=== PATIENT | female | born 1960 | race Caucasian/White ===

== ENCOUNTER 2021-05-10 00:34 | Observation (INO) | payer OTHER ==
[~2021-05-10] VITALS: Ht 154.9 cm; Wt 48.5 kg
[~2021-05-10 00:34] MED LIST: CIPRO500 MG PO; HYDROXYZINE HCL25 M2 PO; METOPROLOL SUCC25 M1 PO; PREDNISONE 20 M20 M1 PO; ULTRAM 50MG TAB50 MG PO; VALIUM5 MG PO
[2021-05-10 00:37] VITALS: BP 125/69
[2021-05-10 01:15] LABS: ABSOLUTE BASOPHILS 0.1 thou/uL (0.0-0.2); ABSOLUTE EOSINOPHILS 0.1 thou/uL (0.0-0.7); ABSOLUTE LYMPHOCYTES 1.6 thou/uL (0.8-5.3); ABSOLUTE MONOCYTES 0.4 thou/uL (0.0-1.2); ABSOLUTE NEUTROPHILS 5.3 thou/uL (1.6-8.1); BASOPHILS 0.7 %; EOSINOPHILS 1.1 %; HEMATOCRIT 39.8 % (37.0-47.0); HEMOGLOBIN 13.7 gm/dL (12.0-15.0); LYMPHOCYTES 21.3 %; MCH 29.8 pg (26.0-34.0); MCHC 34.5 g/dL (28.0-37.0); MCV 86.3 fL (80.0-100.0); MONOCYTES 4.9 %; MPV 7.4 fl. (7.2-11.1); NUCLEATED RBCS 0 /100WBC; PLATELET COUNT* 212 thou/uL (150-400); RBC 4.61 mil/uL (4.20-5.00); RDW-CV 14.5 % (10.5-14.5); WBC 7.3 thou/uL (4.0-11.0)
[2021-05-10 01:24] LABS: CALCIUM 8.5 mg/dL (8.5-10.1); CREATININE 0.8 mg/dL (0.6-1.3); POTASSIUM 3.5 mmol/L (3.5-5.1)
[2021-05-10 01:34] LABS: ALBUMIN 3.9 g/dL (3.4-5.0); MAGNESIUM 1.9 mg/dL (1.8-2.4); TOTAL BILIRUBIN 1.9 mg/dL (<0.1-1.0); TOTAL PROTEIN 6.6 g/dL (6.4-8.2)
[2021-05-10 02:27] LABS: URINE BILIRUBIN NEGATIVE (Negative); URINE BLOOD 1+ (Negative); URINE COLOR YELLOW; URINE GLUCOSE-RANDOM NEGATIVE (Negative); URINE KETONES NEGATIVE (Negative); URINE LEUKOCYTES-REFLEX TRACE (Negative); URINE PROTEIN NEGATIVE (Negative); URINE SPECIFIC GRAVITY >= 1.030 (1.005-1.030); URINE UROBILINOGEN 0.2 E.U./dl (0.2-1.0)
[2021-05-10 02:30] LABS: URINE CLARITY SL CLOUDY; URINE NITRITE-REFLEX POSITIVE (Negative)
[2021-05-10 02:36] LABS: AMP/METHAMP Negative (Negative); BARBITURATES Negative (Negative); BENZODIAZEPINES POSITIVE (Negative); COCAINE Negative (Negative); METHADONE Negative (Negative); OPIATES POSITIVE (Negative); PCP Negative (Negative); THC POSITIVE (Negative)
[2021-05-10 02:55] LABS: SQUAMOUS 0-3 Few /LPF (0-3); WBC CLUMPS Few (None Seen)
[2021-05-10 02:56] LABS: BACTERIA-REFLEX >30 Many /HPF (None Seen); CASTS None Seen /LPF (None Seen); CRYSTALS None Seen /LPF (None Seen); MUCUS 4-6 Moderate strn/LPF (None Seen)
[2021-05-10 06:19] VITALS: BP 157/69
[2021-05-10 09:45] VITALS: BP 125/65
[2021-05-10 14:15] VITALS: BP 95/54
[2021-05-10 17:45] VITALS: BP 111/60
[2021-05-10 21:30] VITALS: BP 114/54
[2021-05-11] VITALS (7 sets, daily range): BP systolic 110–140; BP diastolic 54–78
[2021-05-11 02:37] LABS: HEMATOCRIT 40.5 % (37.0-47.0); HEMOGLOBIN 13.9 gm/dL (12.0-15.0); MCH 29.8 pg (26.0-34.0); MCHC 34.3 g/dL (28.0-37.0); MCV 86.6 fL (80.0-100.0); MPV 7.6 fl. (7.2-11.1); RBC 4.68 mil/uL (4.20-5.00); RDW-CV 14.8 % (10.5-14.5); WBC 8.5 thou/uL (4.0-11.0)
[2021-05-11 02:47] LABS: ALBUMIN 3.6 g/dL (3.4-5.0); BUN 16 mg/dL (7-18); SGPT 22 U/L (30-65); TROPONIN-I LEVEL <0.06 ng/mL (<0.06); VLDL 11 mg/dL (<40)
[2021-05-11 02:51] LABS: ALKALINE PHOSPHATASE 61 U/L (46-116); ANION GAP 7 mmol/L (7-16); CALCIUM 8.3 mg/dL (8.5-10.1); CHLORIDE 107 mmol/L (98-107); CHOLESTEROL 171 mg/dL (<200); CO2 28 mmol/L (21-32); CREATININE 0.9 mg/dL (0.6-1.3); GLUCOSE 104 mg/dL (70-99); HDL CHOLESTEROL 75 mg/dL (>40); LDL CHOLESTEROL 85 mg/dL (<100); SGOT 12 U/L (15-37); SODIUM 142 mmol/L (136-145); TC:HDL 2.3 Ratio (Not establshd); TOTAL BILIRUBIN 3.7 mg/dL (<0.1-1.0); TOTAL PROTEIN 6.1 g/dL (6.4-8.2); TRIGLYCERIDE 57 mg/dL (<150)
[2021-05-11 03:08] LABS: SERUM ASSESSMENT CLEAR
[2021-05-11 05:06] LABS: GLYCOHEMOGLOBIN (HGB A1C) 5.5 % (4.8-5.6)
[2021-05-11] MEDS ORDERED: IBUPROFEN 600600 M1 PO (07:38)
[2021-05-11] MEDS ORDERED: LEVOFLOXACIN500 MG PO (07:38)
--- NOTE | 2021-05-11 09:59 | NUR ---
Admission Assessment Admitted from Home Drove self to Hospital Mental Status upon admission Alert & Oriented x Living Arrangements: House Lives with: spouse Clive Support system: Name Phone number Kevin Razo [phone] [facility] Can patient return to prior living arrangements? Yes Activities of daily living: Independent Assistive device: Not using any but does have shower chair and walker if needed Prior resource use: None
--- NOTE | 2021-05-11 13:04 | 2DMMODE ---
[place] [address] 2 D/M-MODE ECHOCARDIOGRAM Name: SANDRA TERRELL Lon Room: [address] Margo#: [id number] Admission: 05/10/21 Attend Phys: Alicia Yusuf Discharge: Date of : 60 Date of Service: 05/11/21 1304 Report #: [id number] THIS REPORT FOR: cc: Lc Posadas Bradley L. DO Holkins, John M. MD [facility] ~ APPROVED REPORT Study performed: 05/11/2021 11:34:08 EXAM: Comprehensive 2D, Doppler, and color-flow Echocardiogram Patient Location: In-Patient Status: routine BSA: 1.45 HR: 66 bpm BP: 110/62 mmHg Rhythm: NSR Other Information Study Quality: Good Indications Chest Pain 2D Dimensions IVSd: 7.93 (7-11mm) LVOT Diam: 18.15 (18-24mm) LVDd: 41.44 mm PWd: 8.36 (7-11mm) Ascending Ao: 31.41 (22-36mm) LVDs: 24.34 (25-40mm) Aortic Root: 29.61 mm Volumes Left Atrial Volume (Systole) LA ESV Index: 22.50 mL/m2 Aortic Valve AoV Peak Patrick.: 1.14 m/s AO Peak Gr.: 5.22 mmHg LVOT Max P.41 mmHg AO Mean Gr.: 2.91 mmHg LVOT Mean P.59 mmHg LVOT Max V: 0.92 m/s AO V2 VTI: 27.04 cm LVOT Mean V: 0.57 m/s MK (VTI): 1.96 cm2 LVOT V1 VTI: 20.50 [place] [address] 2 D/M-MODE ECHOCARDIOGRAM Name: SANDRA TERRELL Room: [address] MNichelleRNichelle#: [id number] Admission: 05/10/21 Attend Phys: Alicia Yusuf Discharge: Date of : 60 Date of Service: 05/11/21 1304 Report #: [id number] Mitral Valve E/A Ratio: 1.12 MV Decel. Time: 200.98 ms MV E Max Patrick.: 0.84 m/s MV PHT: 58.28 ms MVA (PHT): 3.77 cm2 TDI E/Lateral E': 6.00 E/Medial E': 6.46 Medial E' Patrick.: 0.13 m/s Lateral E' Patrick.: 0.14 m/s Pulmonary Valve PV Peak Patrick.: 0.84 m/s PV Peak Gr.: 2.82 mmHg Tricuspid Valve RAP Estimate: 5.00 mmHg TR Peak Gr.: 17.07 mmHg RVSP: 22.00 mmHg PA Pressure: 22.00 mmHg Left Ventricle The left ventricle is normal size. There is normal LV segmental wall motion. There is normal left ventricular wall thickness. Left ventricular systolic function is normal. The left ventricular ejection fraction is within the normal range. LVEF is 60%. The left ventricular diastolic function is normal. Right Ventricle The right ventricle is normal size. The right ventricular systolic function is normal. Atria The left atrium size is normal. The right atrium size is normal. Aortic Valve The aortic valve is normal in structure. No aortic regurgitation is present. There is no aortic valvular stenosis. Mitral Valve The mitral valve is normal in structure. Trace mitral regurgitation. No evidence of mitral valve stenosis. Tricuspid Valve The tricuspid valve is normal in structure. Trace tricuspid regurgitation. [place] [address] 2 D/M-MODE ECHOCARDIOGRAM Name: SANDRA TERRELL [address]#: [id number] Admission: 05/10/21 Attend Phys: Alicia Yusuf Discharge: Date of : 60 Date of Service: 05/11/21 1304 Report #: [id number] Pulmonic Valve The pulmonary valve is normal in structure. There is no pulmonic valvular regurgitation. Great Vessels The aortic root is normal in size. IVC is normal in size and collapses >50% with inspiration. Pericardium There is no pericardial effusion. <Conclusion> The left ventricle is normal size. There is normal left ventricular wall thickness. Left ventricular systolic function is normal. The left ventricular ejection fraction is within the normal range. LVEF is 60%. The left ventricular diastolic function is normal. The right ventricle is normal size. The left atrium size is normal. The aortic valve is normal in structure. The mitral valve is normal in structure. Trace mitral regurgitation. The tricuspid valve is normal in structure. IVC is normal in size and collapses >50% with inspiration. There is no pericardial effusion. There is normal LV segmental wall motion. <ELECTRONICALLY SIGNED> By: Connor Waterman MD, FACC 05/11/21 1304 1304 1304 Connor Waterman MD, FACC /INF
--- NOTE | 2021-05-11 14:02 | EKG ---
[place] [address] ELECTROCARDIOGRAM REPORT Name: SANDRA TERRELL Room: [address] M.R.#: [id number] Admission: 05/10/21 Attend Phys: Alicia Yusuf Discharge: Date of : 60 Date of Service: 05/10/21 0259 Report #: [id number] THIS REPORT FOR: //name// [facility] ED Test Date: 2021-05-10 Test Time: 02:59:31 Pat Name: SANDRA TERRELL Department: Room: [facility] Gender: F Processor Helper: DANIA : 1960 Requested By: Lucy Zayas Order Number: [id number] MD: Connor Waterman Measurements Intervals [place] Rate: 55 P: 57 MN: 172 QRS: 29 QRSD: 94 T: 30 QT: 431 QTc: 413 Interpretive Statements Sinus rhythm Compared to ECG 05/10/2021 00:40:43 No significant changes Electronically Signed On 05-11-2021 14:02:38 CDT by Connor Waterman [email or web address] <ELECTRONICALLY SIGNED> By: Connor Waterman MD, [facility] 05/11/21 1402 0259 0259 Connor Waterman MD, [facility] /EPI
--- NOTE | 2021-05-11 14:02 | EKG ---
[place] [address] ELECTROCARDIOGRAM REPORT Name: NIDHISANDRA Room: [address] M.R.#: [id number] Admission: 05/10/21 Attend Phys: Alicia Yusuf Discharge: Date of : 60 Date of Service: 05/10/21 0040 Report #: [id number] THIS REPORT FOR: //name// [facility] ED Test Date: 2021-05-10 Test Time: 00:40:43 Pat Name: SANDRA TERRELL Department: Room: [facility] Gender: F Finish Carpenter: DANIA : 1960 Requested By: Lucy Zayas Order Number: [id number] MD: Connor Waterman Measurements Intervals [place] Rate: 68 P: 66 AR: 167 QRS: 28 QRSD: 98 T: 55 QT: 414 QTc: 441 Interpretive Statements Sinus rhythm Compared to ECG 04/23/2017 13:51:56 No significant changes Electronically Signed On 05-11-2021 14:02:34 CDT by Connor Waterman [email or web address] <ELECTRONICALLY SIGNED> By: Connor Waterman MD, FACC 05/11/21 1402 0040 0040 Connor Waterman MD, [facility] /EPI
--- NOTE | 2021-05-11 14:03 | EKG ---
[place] [address] ELECTROCARDIOGRAM REPORT Name: SANDRA TERRELL Room: [address] M.R.#: [id number] Admission: 05/10/21 Attend Phys: Alicia Yusuf Discharge: Date of : 60 Date of Service: 05/10/21605 Report #: [id number] THIS REPORT FOR: //name// [facility] ED Test Date: 2021-05-10 Test Time: 06:06:56 Pat Name: SANDRA TERRELL Department: Room: [place] [address] Gender: F Chicken And Fish Cleaner: DANIA : 1960 Requested By: Lucy Zayas Order Number: [id number] MD: Connor Waterman Measurements Intervals [place] Rate: 65 P: 72 [place]: 178 QRS: 23 QRSD: 92 T: 39 QT: 408 QTc: 425 Interpretive Statements Sinus rhythm Compared to ECG 05/10/2021 02:59:31 No significant changes Electronically Signed On 05-11-2021 14:03:35 CDT by Connor Waterman [email or web address] <ELECTRONICALLY SIGNED> By: Connor Waterman MD, [facility] 05/11/21 1403 0606 0606 Connor Waterman MD, [facility] /EPI
--- NOTE | 2021-05-11 16:02 | NUR ---
Pt discharging. Given information for Edson Helms for PCP and Cardiology follow up and testing needs. Also given Medication Assistance and Health Care resources list
--- NOTE | 2021-05-11 17:17 | NUR ---
ASSUMED CARE OF PT. AT 1015 THIS AM--PT. ARRIVED VIA BED FROM ER. INITIAL ASSESSMENT AT 1015- SR ON MONITOR. CHEST PAIN RT SIDE OF ANTERIOR CHEST THAT IS "2" AND SHARP BUT TOLERABLE--DOES GET WORSE WITH DEEP BREATHING. 1045: DR BUNN AT BEDSIDE TALKING WITH PT. 1653:DISMISSAL INSTRUCTIONS REVIEWED WITH PT. SHE VERBALIZES UNDERSTANDING. DID RELAY SLIGHT INCREASE IN PAIN AROUND 1400- SCHEDULED IBUPROFEN GIVEN AT THAT TIME WITH RELIEF BY 1500. 1653- LEFT VIA W/C IN STABLE CONDITION WITH ALL BELONGINGS.
== END 2021-05-11 16:53 | disposition home or self-care (01) ==
LOC: M.ERS 00:34 → M.TBA-ER 02:53
PROVIDERS: Emergency Medicine; Internal Medicine; ADMIT Internal Medicine; ATTEND Internal Medicine
DX: R07.89 Other chest pain (principal); R10.13 Epigastric pain; Z20.822 Contact with and (suspected) exposure to COVID-19; F19.10 Other psychoactive substance abuse, uncomplicated; F32.9 Major depressive disorder, single episode, unspecified; F17.200 Nicotine dependence, unspecified, uncomplicated; Z88.5 Allergy status to narcotic agent; Z91.030 Bee allergy status; Z90.710 Acquired absence of both cervix and uterus; Z86.19 Personal history of other infectious and parasitic diseases; Z79.899 Other long term (current) drug therapy

== ENCOUNTER 2021-10-05 09:27 | Emergency (ER) | payer OTHER ==
[~2021-10-05] VITALS: Ht 154.9 cm; Wt 47.2 kg
[~2021-10-05 09:27] MED LIST changes: +IBUPROFEN 600600 M1 PO; +LEVOFLOXACIN500 MG PO
[2021-10-05 11:25] LABS: INFLUENZA A ANTIGEN Negative (Negative); INFLUENZA B ANTIGEN Negative (Negative)
[2021-10-05] MEDS ORDERED: ZOFRAN ODT4 MG DISSOLVE (11:46)
[2021-10-05] MEDS ORDERED: TESSALON PERLE100 MG PO (11:46)
[2021-10-05 11:55] VITALS: BP 170/92
== END 2021-10-05 11:56 | disposition home or self-care (01) ==
LOC: M.ERS 09:27
PROVIDERS: Emergency Medicine Emergency Medical Services
DX: U07.1 COVID-19 (principal); F32.9 Major depressive disorder, single episode, unspecified; F17.210 Nicotine dependence, cigarettes, uncomplicated; Z98.890 Other specified postprocedural states; Z90.711 Acquired absence of uterus with remaining cervical stump; Z91.030 Bee allergy status; Z88.5 Allergy status to narcotic agent